=== PATIENT | female | born 1990 | race American Indian/Alaskan Native ===

== ENCOUNTER 2022-02-05 13:46 | Emergency (ER) | payer OTHER ==
--- NOTE | 2022-02-05 15:28 | Emergency Department Report ---
ED General Adult HPI - General Chief complaint: Seizure Stated complaint: POST SZ Time Seen by Provider: 02/05/22 15:22 Source: patient, family, EMS ( EMS documentation not available at time of chart dictation ), RN notes reviewed Mode of arrival: Stretcher Limitations: No Limitations - History of Present Illness Initial comments: This patient is a pleasant 31-year-old female. She states that she is not and has not delivered her given in the past 6 weeks. The patient has recently relocated here from [place]. She reports a history of chronic headaches, chronic migraines, and complex migraine/convulsions. She presents to the ER today with a complaint of chronic migraine headache, associated with convulsion. She reports that she has been feeling weak and stressed out since relocating here from [place] a few months ago. She does not have local established primary care. She was recently diagnosed with a UTI last week at an urgent care center and started on Macrobid. She has a mild headache. She denies dysuria. She denies loss of taste and smell. She is partially COVID-19 vaccinated. She recreationally consumes marijuana from [place], but not from [place]. She denies additional injuries and complaints. She states this is very similar to prior events that have happened to her in the past while evaluated in [place]. She reports that she has had multiple CT scans of the brain, which were essentially negative except for small cysts, and nonspecific MRIs in the past which she does not believe have demonstrated significant findings. She believes that she is back to her baseline at this time. Significant other at the bedside corroborates this. -: Gradual Location: head Consistency: intermittent Improves with: rest Worsens with: movement - Related Data Home Medications Medication Instructions Recorded Confirmed Last Taken Divalproex Dr [Viky FONG] 250 mg PO BID 02/05/22 02/05/22 Unknown Divalproex [Viky FONG] 500 mg PO BID 02/05/22 02/05/22 Unknown Nitrofurantoin [place]/M-Cryst 100 mg PO BID 02/05/22 02/05/22 Unknown [Macrobid CAP] Rizatriptan Benzoate [Rizatriptan] 10 mg PO Q12HR 02/05/22 02/05/22 Unknown Previous Rx's Medication Instructions Recorded Last Taken Type Metoclopramide [Reglan] 10 mg PO QID PRN #30 tablet 02/05/22 Unknown Rx Allergies Allergy/AdvReac Type Severity Reaction Status Date / Time No Known Allergies Allergy Verified 02/05/22 16:25 ED Review of Systems ROS: Stated complaint: POST SZ Other details as noted in HPI Constitutional: malaise. denies: fever Eyes: denies: eye discharge, vision change Respiratory: denies: cough Cardiovascular: denies: chest pain Gastrointestinal: nausea. denies: abdominal pain, vomiting Genitourinary: denies: dysuria Neurological: headache, weakness. denies: numbness ED Past Medical Hx - Medications Home Medications: Home Medications Medication Instructions Recorded Confirmed Last Taken Type Divalproex Dr [DepaKOTE DR] 250 mg PO BID 02/05/22 02/05/[address] [DepaKOTE DR] 500 mg PO BID 02/05/22 02/05/22 Unknown History Metoclopramide [Reglan] 10 mg PO QID PRN #30 tablet 02/05/22 Unknown Rx Nitrofurantoin [place]/M-Cryst 100 mg PO BID 02/05/22 02/05/22 Unknown History [Macrobid CAP] Rizatriptan Benzoate [Rizatriptan] 10 mg PO Q12HR 02/05/22 02/05/22 Unknown History ED Physical Exam - General Limitations: No Limitations General appearance: alert, in no apparent distress - Head Head exam: Present: atraumatic, normocephalic - Eye Eye exam: Present: normal appearance, PERRL, EOMI. Absent: nystagmus - ENT ENT exam: Present: normal exam, normal orophraynx, mucous membranes moist, normal external ear exam - Neck Neck exam: Present: normal inspection, full ROM. Absent: tenderness, meningismus - Respiratory Respiratory exam: Present: normal lung sounds bilaterally. Absent: respiratory distress, wheezes, rales, rhonchi, stridor, decreased breath sounds - Cardiovascular Cardiovascular Exam: Present: normal rhythm, bradycardia, normal heart sounds. Absent: tachycardia, irregular rhythm, systolic murmur, diastolic murmur, rubs, gallop - GI/Abdominal GI/Abdominal exam: Present: soft. Absent: distended, tenderness, guarding, rebound, rigid, pulsatile mass - Extremities Exam Extremities exam: Present: normal inspection, full ROM, other (2+ pulses noted in the bilateral upper and lower extremities. There is no palpable cord. negative Homans sign. Muscular compartments are soft. The pelvis is stable.). Absent: pedal edema, calf tenderness - Back Exam Back exam: Present: normal inspection, full ROM. Absent: tenderness, CVA tenderness (R), CVA tenderness (L), paraspinal tenderness, vertebral tenderness - Neurological Exam Neurological exam: Present: alert (There is no past pointing. There is normal [id number]. There is no pronator drift), oriented X3, motor sensory deficit, reflexes normal, other (No facial droop. Tongue midline. Extraocular movements intact bilaterally. Facial sensation intact to light touch in V1, V2, V3 distribution bilaterally. 5 and a 5 strength in 4 extremities. Sensation intact to light touch in 4 extremities.) - Psychiatric Psychiatric exam: Present: normal affect, normal mood - Skin Skin exam: Present: warm, dry, intact, normal color. Absent: rash ED Course Vital Signs 02/05/22 02/05/22 02/05/22 15:26 15:27 15:29 Temperature Pulse Rate 42 L 41 L 45 L Respiratory 10 L 11 L 13 Rate Blood Pressure 124/71 124/71 O2 Sat by Pulse 100 100 100 Oximetry 02/05/22 02/05/22 15:31 16:46 Temperature 97.8 F Pulse Rate 40 L Respiratory 17 Rate Blood Pressure 124/71 O2 Sat by Pulse 100 Oximetry ED Medical Decision Making - Lab Data Result diagrams: 02/05/22 15:33 02/05/22 15:33 Vital Signs 02/05/22 02/05/22 02/05/22 15:26 15:27 15:29 Temperature Pulse Rate 42 L 41 L 45 L Respiratory 10 L 11 L 13 Rate Blood Pressure 124/71 124/71 O2 Sat by Pulse 100 100 100 Oximetry 02/05/22 02/05/22 15:31 16:46 Temperature 97.8 F Pulse Rate 40 L Respiratory 17 Rate Blood Pressure 124/71 O2 Sat by Pulse 100 Oximetry Lab Results 02/05/22 02/05/22 02/05/22 Range/Units 15:33 15:33 15:33 WBC 5.3 (4.5-11.0) K/mm3 RBC 4.13 (3.65-5.03) M/mm3 Hgb 12.7 (10.1-14.3) gm/dl Hct 38.4 (30.3-42.9) % MCV 93 (79-97) fl MCH 31 (28-32) pg MCHC 33 (30-34) % RDW 12.8 L (13.2-15.2) % Plt Count 204 (140-440) K/mm3 Lymph % (Auto) 30.2 (13.4-35.0) % [place] % (Auto) 4.6 (0.0-7.3) % Eos % (Auto) 2.9 (0.0-4.3) % Baso % (Auto) 0.8 (0.0-1.8) % Lymph # (Auto) 1.6 (1.2-5.4) K/mm3 [place] # (Auto) 0.2 (0.0-0.8) K/mm3 Eos # (Auto) 0.2 (0.0-0.4) K/mm3 Baso # (Auto) 0.0 (0.0-0.1) K/mm3 Seg Neutrophils % 61.5 (40.0-70.0) % Seg Neutrophils # 3.3 (1.8-7.7) K/mm3 Sodium 136 L (137-145) mmol/L Potassium 4.6 (3.6-5.0) mmol/L Chloride 104.7 (98-107) mmol/L Carbon Dioxide 22 (22-30) mmol/L Anion Gap 14 mmol/L BUN 12 (7-17) mg/dL Creatinine 0.6 (0.6-1.2) mg/dL Estimated GFR > 60 ml/min BUN/Creatinine Ratio 20 % Glucose 91 (65-100) mg/dL Magnesium 2.10 (1.7-2.3) mg/dL Total Bilirubin 0.60 (0.1-1.2) mg/dL AST 20 (5-40) units/L ALT 16 (7-56) units/L Alkaline Phosphatase 90 (35-129) units/L Total Creatine Kinase 77 (30-135) units/L Total Protein 7.0 (6.3-8.2) g/dL Albumin 4.1 (3.9-5) g/dL Albumin/Globulin Ratio 1.4 % HCG, Quant < 2 (0-4) mIU/mL Urine Color (Yellow) Urine Turbidity (Clear) Urine pH (5.0-7.0) Ur Specific [place] (1.003-1.030) Urine Protein (Negative) mg/dL Urine Glucose (UA) (Negative) mg/dL Urine Ketones (Negative) mg/dL Urine Blood (Negative) Urine Nitrite (Negative) Urine Bilirubin (Negative) Urine Urobilinogen (<2.0) mg/dL Ur Leukocyte Esterase (Negative) Urine WBC (Auto) (0.0-6.0) /HPF Urine RBC (Auto) (0.0-6.0) /HPF U Epithel Cells (Auto) (0-13.0) /HPF Urine Bacteria (Auto) (Negative) /HPF Urine Yeast (Budding) /HPF Salicylates (2.8-20.0) mg/dL Valproic Acid (50-100) ug/mL Plasma/Serum Alcohol (0-0.07) % 02/05/22 02/05/22 02/05/22 Range/Units 15:33 15:33 Unknown WBC (4.5-11.0) K/mm3 RBC (3.65-5.03) M/mm3 Hgb (10.1-14.3) gm/dl Hct (30.3-42.9) % MCV (79-97) fl MCH (28-32) pg MCHC (30-34) % RDW (13.2-15.2) % Plt Count (140-440) K/mm3 Lymph % (Auto) (13.4-35.0) % [place] % (Auto) (0.0-7.3) % Eos % (Auto) (0.0-4.3) % Baso % (Auto) (0.0-1.8) % Lymph # (Auto) (1.2-5.4) K/mm3 [place] # (Auto) (0.0-0.8) K/mm3 Eos # (Auto) (0.0-0.4) K/mm3 Baso # (Auto) (0.0-0.1) K/mm3 Seg Neutrophils % (40.0-70.0) % Seg Neutrophils # (1.8-7.7) K/mm3 Sodium (137-145) mmol/L Potassium (3.6-5.0) mmol/L Chloride (98-107) mmol/L Carbon Dioxide (22-30) mmol/L Anion Gap mmol/L BUN (7-17) mg/dL Creatinine (0.6-1.2) mg/dL Estimated GFR ml/min BUN/Creatinine Ratio % Glucose (65-100) mg/dL Magnesium (1.7-2.3) mg/dL Total Bilirubin (0.1-1.2) mg/dL AST (5-40) units/L ALT (7-56) units/L Alkaline Phosphatase (35-129) units/L Total Creatine Kinase (30-135) units/L Total Protein (6.3-8.2) g/dL Albumin (3.9-5) g/dL Albumin/Globulin Ratio % HCG, Quant (0-4) mIU/mL Urine Color Yellow (Yellow) Urine Turbidity Slightly-cloudy (Clear) Urine pH 7.0 (5.0-7.0) Ur Specific [place] 1.015 (1.003-1.030) Urine Protein <15 mg/dl (Negative) mg/dL Urine Glucose (UA) Neg (Negative) mg/dL Urine Ketones Neg (Negative) mg/dL Urine Blood Mod (Negative) Urine Nitrite Neg (Negative) Urine Bilirubin Neg (Negative) Urine Urobilinogen < 2.0 (<2.0) mg/dL Ur Leukocyte Esterase Neg (Negative) Urine WBC (Auto) 3.0 (0.0-6.0) /HPF Urine RBC (Auto) 2.0 (0.0-6.0) /HPF U Epithel Cells (Auto) 8.0 (0-13.0) /HPF Urine Bacteria (Auto) 1+ (Negative) /HPF Urine Yeast (Budding) 3+ /HPF Salicylates 2.5 L (2.8-20.0) mg/dL Valproic Acid < 2.8 L (50-100) ug/mL Plasma/Serum Alcohol < 0.01 (0-0.07) % - EKG Data -: EKG Interpreted by [place] EKG shows normal: sinus rhythm Rate: bradycardia - EKG Data 02/05/22 17:18 The EKG is interpreted at 15: 35 The EKG shows sinus rhythm, bradycardia, with a rate of 42 bpm. There is evelin ile T wave inversion. The intervals are otherwise unremarkable. There is no prior for comparison. The EKG is not a STEMI - Medical Decision Making Differential diagnosis, include but not limited to: Migraine headache, tension headache, cluster headache, complex migraine, seizure, pseudoseizure, conversion disorder Assessment and plan: 1-year-old female, who is clinically sober at this time, with a GCS of 15, NIH score of 0, who presents to the ER today with a complaint of possible seizure, in the context of complex migraine. Neurologic exam is benign and unremarkable. Laboratory studies are benign and unremarkable. Bradycardia reviewed and appreciated. Blood pressure acceptable and within normal limits at this time. Patient is observed in this department for hours without clinical decompensation. She reports that she has Depakote and Keppra at home, but he does not like to take them because she does not like the way they make her feel. She does not believe that she has a true history of epilepsy, but rather complex migraines. Extensive discussion had with patient and significant other regarding advanced neuroimaging. Given the aforementioned findings, and history obtained from patient, I thought it was very unlikely that a CT scan of the brain would be of emergent use or utility. The patient is in agreement with this and prefers not to have CT scan out of concern for radiation. I think this is reasonable. Therefore, through shared decision-making, we agreed to not obtain advanced neuroimaging. Patient will be discharged with instructions to follow-up with outpatient primary care, and/or neurology. Patient is advised to discontinue marijuana consumption, complete COVID-19 vaccination series, and to not drive or operate motor vehicles for the next 6 months, or until cleared to do so by an outpatient primary care doctor or neurologist Critical care attestation.: If time is entered above; I have spent that time in minutes in the direct care of this critically ill patient, excluding procedure time. ED Disposition Clinical Impression: History of migraine, History of convulsions Disposition: 01 HOME / SELF CARE / HOMELESS Is pt being admited?: No Does the pt Need Aspirin: No Condition: Good Instructions: Seizure, Adult, [id number] Additional Instructions: Please continue current outpatient medications. Discontinue marijuana consumption. Recommend that patient complete COVID-19 vaccination series including booster. Recommend that patient not drive or operate motor vehicles for the next 6 months, or until cleared to do so by her primary care doctor or neurologist. Recommend that patient follow-up within the next week with an outpatient primary care doctor or neurologist. Patient may follow-up with any of the local referrals on this paperwork, or [facility] online, and obtain follow-up with a headache/migraine/neurology specialist. Patient may take the prescribed medications as needed and directed. Please return to the emergency room right away with new pain, worsened pain, migration of pain, projectile vomiting, change in mental status, confusion, inability tolerate liquid feeds, new, worsened or different symptoms not present on the initial emergency room evaluation Referrals: [facility] [Provider Group] - 3-5 Days MATEO HARRIS MD [Referring] - 3-5 Days PATEL KAMINSKI MD [Staff Physician] - 3-5 Days Forms: Work/School Release Form(ED)
[2022-02-05 15:56] LABS: Basophils % (Auto) 0.8 % (0.0-1.8); Eosinophils # (Auto) 0.2 K/mm3 (0.0-0.4); Eosinophils % (Auto) 2.9 % (0.0-4.3); Hematocrit 38.4 % (30.3-42.9); Hemoglobin 12.7 gm/dl (10.1-14.3); Lymphocytes # (Auto) 1.6 K/mm3 (1.2-5.4); Lymphocytes % (Auto) 30.2 % (13.4-35.0); Mean Corpuscular HGB Conc 33 % (30-34); Mean Corpuscular Volume 93 fl (79-97); Monocytes # (Auto) 0.2 K/mm3 (0.0-0.8); Monocytes % (Auto) 4.6 % (0.0-7.3); Platelet Count 204 K/mm3 (140-440); Red Blood Count 4.13 M/mm3 (3.65-5.03); Red Cell Distribution Width 12.8 % (13.2-15.2)
[2022-02-05 16:20] LABS: Alanine Aminotransferase 16 units/L (7-56); Albumin 4.1 g/dL (3.9-5); Blood Urea Nitrogen 12 mg/dL (7-17)
[2022-02-05 16:22] LABS: BUN/Creatinine Ratio 20
[2022-02-05 16:35] LABS: Bacteria,Urine 1+ /HPF (Negative); Bilirubin,Urine NEG (Negative); Blood,Urine MOD (Negative); Color,Urine Yellow (Yellow); Protein,Urine <15 mg/dL mg/dL (Negative); Urobilinogen,Urine < 2.0 mg/dL (<2.0)
[2022-02-05] MEDS ORDERED: ACETAMINOPHEN 325 MG TAB PO ONE (17:00)
[2022-02-05] MEDS ORDERED: METOCLOPRAMIDE 10 MG/2 ML INJ IV ONE (17:00)
[2022-02-05] MEDS ORDERED: LACTATED RINGERS 1,000 ML IV ONE (17:00)
[2022-02-05] MEDS ORDERED: diphenhydrAMINE 50 MG/ML VIAL IV ONE (17:00)
[2022-02-05] MEDS ORDERED: KETOROLAC 30 MG/1 ML INJ IV ONE (17:14)
[2022-02-05 17:51] LABS: Calcium 10.2 mg/dL (8.4-10.2); Hemolysis Index 31
[2022-02-05 18:52] VITALS: BP 98/50
--- NOTE | 2022-02-08 18:43 | Electrocardiograph Report ---
[facility] Test Date: 2022-02-05 Test Time: 15:35:42 Pat Name: GERALDO MCCRAY Department: Room: Gender: F Food Service Associate: EMILI : 1990 Requested By: DHEERAJ PENNY Order Number: [id number] Reading MD: Alec Sarah Measurements Intervals [place] Rate: 42 P: 11 WI: 146 QRS: 77 QRSD: 95 T: 56 QT: 461 QTc: 384 Interpretive Statements Sinus bradycardia No previous ECG available for comparison Electronically Signed On 02-08-2022 18:42:34 EDT by Alec Sarah
== END 2022-02-05 19:16 | disposition home or self-care (01) ==
LOC: ED 13:46
DX: G43.909 Migraine, unspecified, not intractable, without status migrainosus (principal); R56.9 Unspecified convulsions
CPT/HCPCS: 36415; 80053; 80164; 81001; 82550; 83735; 84702; 85025; 93005; 96361; 96374; 96375; 99283; J1200; J1885; J2765; J7120; 80320; G0480